=== PATIENT | female | born 1990 ===

== ENCOUNTER 2016-08-01 10:11 | Emergency (ER) | payer OTHER ==
[2016-08-01 10:11] VITALS: BMI 25.8
[2016-08-01 10:16] VITALS: BP 117/80; PULSE 103; RESP 18; TEMP 98.6; O2SAT 99
--- NOTE | 2016-08-01 10:41 | C.PDOC ---
History Of Present Illness 26 y/o female presents to the ED with complains of left 4th digit pain x3 days. Pt states with range of motion of digit, it feels like it gets stuck and she has to force the movement. Pt denies any trauma or injury, fever, chills or any other complaints. Time Seen by Provider: 08/01/16 10:21 Chief Complaint (Nursing): Finger,Hand,&Wrist History Per: Patient History/Exam Limitations: no limitations Onset/Duration Of Symptoms: Days Current Symptoms Are (Timing): Still Present Severity: Mild Recent travel outside of the [place]: No Past Medical History Reviewed: Historical Data, Nursing Documentation, Vital Signs Vital Signs: Last Vital Signs Temp 98.6 F 08/01/16 10:14 Pulse 103 H 08/01/16 10:14 Resp 18 08/01/16 10:14 BP 117/80 08/01/16 10:14 Pulse Ox 99 08/01/16 10:40 - Medical History PMH: Migraine Surgical History: Appendectomy Family History: States: Unknown Family Hx - Social History Hx Tobacco Use: No Hx Alcohol Use: No Hx Substance Use: No Review Of Systems Except As Marked, All Systems Reviewed And Found Negative. Constitutional: Negative for: Fever, Chills Musculoskeletal: Positive for: Other (left 4th digit pain) Neurological: Negative for: Weakness, Numbness Physical Exam - Physical Exam Additional Physical Exam Comments: Constitutional: No acute distress. Head: Normocephalic. Atraumatic. Musculoskeletal: Palpable nodule to flexar aspect left 4th digit distal to MCP joint. Full ROM intact. No tenderness or swelling of extremities. Skin: No rashes. Neurologic: ~Alert, no focal deficit. ED Course And Treatment O2 Sat by Pulse Oximetry: 99 (on room air) Pulse Ox Interpretation: Normal Medical Decision Making Medical Decision Making: Instructed patient to follow up with orthopedics for steroid injection. Disposition Counseled Patient/Family Regarding: Studies Performed, Diagnosis, Need For Followup, Rx Given - Disposition Referrals: [facility] [Outside] Disposition: HOME/ ROUTINE Disposition Time: 10:40 Condition: STABLE Instructions: Trigger Finger (ED) Forms: Work Excuse - Clinical Impression Clinical Impression: Trigger finger - Scribe Statement The provider has reviewed the documentation as recorded by the Dodie Banerjee Provider Attestation: All medical record entries made by the Scribe were at my direction and personally dictated by me. I have reviewed the chart and agree that the record accurately reflects my personal performance of the history, physical exam, medical decision making, and the department course for this patient. I have also personally directed, reviewed, and agree with the discharge instructions and disposition.
== END 2016-08-01 10:45 | disposition home or self-care (01) ==
LOC: C.ER 10:11
DX: M65.342 Trigger finger, left ring finger (principal)